=== PATIENT | male | born 1965 | race Caucasian/White ===

== ENCOUNTER → 2017-09-03 | Outpatient (CLI) | payer OTHER | LOC: M LRY 08:22 | PROVIDERS: ATTEND Emergency Medicine | DX: E78.00 Pure hypercholesterolemia, unspecified (principal) ==

== ENCOUNTER → 2021-08-24 | Outpatient (CLI) | payer OTHER ==
--- NOTE | 2021-08-24 13:02 | REPVR ---
PROCEDURE INFORMATION: Exam: MR Lumbar Spine Without Contrast Exam date and time: 08/24/2021 7:40 AM Age: 56 years old Clinical indication: Other: Radiculopathy; Prior surgery; Surgery date: 6+ months; Surgery type: L4-s1 posterior fusion TECHNIQUE: Imaging protocol: Multiplanar magnetic resonance images of the lumbar spine without intravenous contrast. COMPARISON: CR SPINE LS COMPLETE 05/03/2015 12:01 PM FINDINGS: Vertebrae: Status post lumbosacral surgery with left-sided laminectomies and pedicle screws placement at L4/S1 and disc spacer placement. Susceptibility artifact limits evaluation of the exam. Large anterior osteophyte formation. No acute fracture. Multilevel extensive facet joint arthropathy. Spinal cord: Normal signal. No cord compression. Cauda equina impingement at the level of L3/L4 with thickened nerve roots. L1-L2: Small left paracentral disc protrusion with annular fissure, bilateral facet joint arthropathy and ligamentum flavum hypertrophy resulting in mild left lateral recess narrowing. Central canal and bilateral neural foramina are patent. L2-L3: Diffuse disc bulge with small central disc protrusion, bilateral facet joint arthropathy and ligamentum flavum hypertrophy resulting in moderate central spinal canal stenosis with abutment of the nerve fibers and mild bilateral neural foraminal narrowing, left greater than right. L3-L4: Bilateral pedicle screws with extensive facet joint arthropathy and ligamentum flavum hypertrophy, loss of disc space, disc desiccation, diffuse disc bulge resulting in severe central spinal canal stenosis, severe bilateral recess narrowing, and severe bilateral neural foraminal narrowing, with severe impingement on the traversing bilateral L4 nerve roots and exiting bilateral L3 nerve roots. L4-L5: Left laminectomy, bilateral pedicle screws, and disc spacer placement, bilateral facet joint arthropathy without any significant central spinal canal stenosis. Mild to moderate right neural foraminal narrowing. Left neural foramina is patent. L5-S1: Status post bilateral pedicle screws , disc spacer placement, and partial left laminectomy. Bilateral small subarticular disc protrusions with facet joint arthropathy without any significant central spinal canal stenosis. Mild left and moderate to severe right neural foraminal narrowing with abutment of exiting bilateral L5 nerve roots, right greater than left. Soft tissues: Unremarkable. IMPRESSION: Multilevel degenerative changes as described in detail above. Please see above dictation for individual levels. Electronically signed by: Ana Villa On 08/24/2021 13:01:37 PM
== END ==
LOC: M RAD 06:38
PROVIDERS: ATTEND Nurse Practitioner Family
DX: M54.16 Radiculopathy, lumbar region (principal); R93.7 Abnormal findings on diagnostic imaging of other parts of musculoskeletal system